=== PATIENT | male | born 1970 | race Caucasian/White ===

== ENCOUNTER 2018-06-13 10:41 | Emergency (ER) | payer OTHER ==
[2018-06-13 10:46] VITALS: BP 129/66; PULSE 77; TEMP 98.5; BMI 25.8
--- NOTE | 2018-06-13 10:52 | PDOC ---
History of Present Illness - General Chief Complaint: Rash Stated Complaint: RASH Time Seen by Provider: 06/13/18 10:50 History Source: Patient Exam Limitations: No Limitations - History of Present Illness Initial Comments: 06/13/18 10:53 47 yr male with itchy rash to bilateral arms for 2 days was recently outside doing yard work in [place]. Timing/Duration: reports: getting worse, yesterday Severity: Yes: moderate Location: reports: extremities Respiratory Risk Factors: reports: exposure to allergen Past History - Past Medical History Allergies/Adverse Reactions: Allergies Allergy/AdvReac Type Severity Reaction Status Date / Time No Known Allergies Allergy Verified 06/13/18 10:43 Home Medications: Ambulatory Orders Hydrocortisone Valerate [Westcort 0.2% Cream -] 1 applic TP TID #1 tube COPD: No Thyroid Disease: No Other medical history: DENIES. - Suicide/Smoking/Psychosocial Hx Smoking Status: No Smoking History: Never smoked Have you smoked in the past 12 months: No Number of Cigarettes Smoked Daily: 0 Hx Alcohol Use: No Drug/Substance Use Hx: No Substance Use Type: None Hx Substance Use Treatment: No *Physical Exam - Vital Signs Last Vital Signs Temp Pulse Resp BP Pulse Ox 98.5 F 77 19 129/66 98 06/13/18 10:43 06/13/18 10:43 06/13/18 10:43 06/13/18 10:43 06/13/18 10:43 - Physical Exam General Appearance: Yes: Nourished, Appropriately Dressed HEENT: positive: EOMI, ALAN Extremity: positive: Normal Capillary Refill, Normal Inspection, Normal Range of Motion Integumentary: positive: Rash (right and left inner upper arms with linear red pustule rash approx 2 inches in length x2cm wide) Medical Decision Making - Medical Decision Making 06/13/18 10:53 cc: poison katherine rash to arms no fever no chills rash consistent with poison Katherine will prescribe hydrocortiosne cream pt understands the dc inst *DC/Admit/Observation/Transfer Diagnosis at time of Disposition: Poison katherine dermatitis - Discharge Dispostion Disposition: HOME Condition at time of disposition: Good - Prescriptions Prescriptions: Hydrocortisone Valerate [Westcort 0.2% Cream -] 1 applic TP TID #1 tube - Referrals - Patient Instructions Printed Discharge Instructions: DI for Poison Katherine Allergy Additional Instructions: apply the cortisone cream three times a day for at least 7-10 days until healed cool water to bathe cover your arms with long sleeves take benadyrl, claritin or zyrtec return if worse - Post Discharge Activity
== END 2018-06-13 11:01 | disposition home or self-care (01) ==
LOC: JERFT 10:41
DX: L23.7 Allergic contact dermatitis due to plants, except food (principal)
CPT/HCPCS: 99281-25

== ENCOUNTER 2019-03-07 20:43 | Emergency (ER) | payer OTHER ==
[2019-03-07 20:55] VITALS: BP 149/86; PULSE 91; TEMP 98.1; BMI 27.3
--- NOTE | 2019-03-07 22:41 | PDOC ---
History of Present Illness - General Chief Complaint: Ear Problem Stated Complaint: EAR INFECTION Time Seen by Provider: 03/07/19 21:17 History Source: Patient Exam Limitations: No Limitations - History of Present Illness Initial Comments: 03/07/19 22:43 HISTORY OF PRESENT ILLNESS: This is a 48-year-old male denies medical history presents emergency department for evaluation of diminished hearing in his right ear over the past 3 days. He denies any pain, discharge or drainage from his ear. He reports the decreased hearing as a "muffled vibration." He denies any dizziness, blurry vision No recent travel or sick contacts. PAST MEDICAL HISTORY: Denies past medical history SURGICAL HISTORY: Denies ALLERGIES: No known drug allergies REVIEW OF SYSTEMS General/Constitutional: Denies fever or chills. Denies weakness, weight change. HEENT: see HPI Cardiovascular: Denies chest pain or shortness of breath. Respiratory: Denies cough, wheezing, or hemoptysis. Gastrointestinal: Denies nausea, vomiting, diarrhea or constipation. Denies rectal bleeding. Genitourinary: Denies dysuria, frequency, or change in urination. Musculoskeletal: Denies joint or muscle swelling or pain. Denies neck or back pain. Skin and breasts: Denies rash or easy bruising. Neurologic: Denies headache, vertigo, loss of consciousness, or loss of sensation. Psychiatric: Denies depression or anxiety. Endocrine: Denies increased thirst. Denies abnormal weight change. Hematologic/Lymphatic: Denies anemia, easy bleeding, or history of blood clots. Allergic/Immunologic: Denies hives or skin allergy. Denies latex allergy. PHYSICAL EXAM General Appearance: Well-appearing, appropriately dressed. No apparent distress , no intoxication. HEENT: EOMI, PERRLA, normal ENT inspection, normal voice, pharynx normal. No conjunctival pallor. No photophobia, scleral icterus. Impacted cerumen presents on the right TM from the 2:00 through 5:00 positions. Able to visualize the posterior aspect of the TM which appears within normal limits. Neurologic: sprinkler installer II-XII intact. Fully oriented, alert. Appropriate mood/affect. Motor strength 5/5. No appreciable EOM palsy, facial droop or sensory deficit. Past History - Past Medical History Allergies/Adverse Reactions: Allergies Allergy/AdvReac Type Severity Reaction Status Date / Time No Known Allergies Allergy Verified 03/07/19 20:51 Home Medications: Ambulatory Orders Hydrocortisone Valerate [Westcort 0.2% Cream -] 1 applic TP TID #1 tube COPD: No Thyroid Disease: No - Suicide/Smoking/Psychosocial Hx Smoking Status: No Smoking History: Never smoked Have you smoked in the past 12 months: No Number of Cigarettes Smoked Daily: 0 Information on smoking cessation initiated: No Hx Alcohol Use: No Drug/Substance Use Hx: No Substance Use Type: None Hx Substance Use Treatment: No *Physical Exam - Vital Signs Last Vital Signs Temp Pulse Resp BP Pulse Ox 98.1 F 91 H 16 149/86 100 03/07/19 20:49 03/07/19 20:49 03/07/19 20:49 03/07/19 20:49 03/07/19 20:49 Medical Decision Making - Medical Decision Making 03/07/19 22:41 A/P: 48-year-old male with impacted cerumen on his right TM. No tragal tenderness No mastoid tenderness Discharge home with instructions to instill hydrogen peroxide to remove remaining cerumen. *DC/Admit/Observation/Transfer Diagnosis at time of Disposition: Impacted cerumen of right ear - Discharge Dispostion Disposition: HOME Condition at time of disposition: Stable Decision to Admit order: No - Referrals Referrals: Lakeshia Craven MD [Primary Care Provider] - - Patient Instructions Additional Instructions: Instill hydrogen peroxide into right ear 3 times a week. Follow with a flush of water which can be done in the shower. Do not insert anything smaller than your elbow into your ear. Return to emergency department for any concerns. Thank you very much for choosing us to provide your emergent health care needs. - Post Discharge Activity
== END 2019-03-07 22:14 | disposition home or self-care (01) ==
LOC: JER 20:43 → JERFT 20:43
DX: H61.21 Impacted cerumen, right ear (principal)
CPT/HCPCS: 99281-25

== ENCOUNTER 2019-11-03 15:11 | Emergency (ER) | payer OTHER ==
[2019-11-03 15:18] VITALS: BP 146/92; PULSE 97; TEMP 98.2; BMI 26.6
--- NOTE | 2019-11-03 15:38 | PDOC ---
History of Present Illness - General Chief Complaint: Cold Symptoms Stated Complaint: COLD SYMPTOMS Time Seen by Provider: 11/03/19 15:18 - History of Present Illness Initial Comments: 11/03/19 15:38 49-year-old male without comorbidities presents for flulike symptoms x4 days Past History - Past Medical History Allergies/Adverse Reactions: Allergies Allergy/AdvReac Type Severity Reaction Status Date / Time No Known Allergies Allergy Verified 11/03/19 15:16 COPD: No Thyroid Disease: No - Psycho Social/Smoking Cessation Hx Smoking Status: No Smoking History: Never smoked Have you smoked in the past 12 months: No Number of Cigarettes Smoked Daily: 0 Hx Alcohol Use: No Drug/Substance Use Hx: No Substance Use Type: None Hx Substance Use Treatment: No Review of Systems - Review of Systems Constitutional: Yes: Chills, Fever, Malaise, Night Sweats HEENTM: Yes: Nose Congestion Respiratory: Yes: Cough *Physical Exam - Vital Signs Last Vital Signs Temp Pulse Resp BP Pulse Ox 98.2 F 97 H 18 146/92 98 11/03/19 15:17 11/03/19 15:17 11/03/19 15:17 11/03/19 15:17 11/03/19 15:17 - Physical Exam 11/03/19 15:38 GENERAL: The patient is awake, alert, and fully oriented, in no acute distress. HEAD: Normal with no signs of trauma. EYES: sclera anicteric, conjunctiva clear. ENT: Ears normal oropharynx clear uvula midline NECK: Normal range of motion LUNGS: Breath sounds equal, clear to auscultation bilaterally. No wheezes, and no crackles. HEART: S1 and S2 without murmur, rub or gallop. ABDOMEN: Soft, nontender, normoactive bowel sounds. No guarding, no rebound. No masses. EXTREMITIES: Normal range of motion, no edema. No clubbing or cyanosis. No cords, erythema, or tenderness. NEUROLOGICAL: Cranial nerves II through XII grossly intact. Normal speech, normal gait. PSYCH: Normal mood, normal affect. SKIN: Warm, Dry, normal turgor, no rashes or lesions noted. Medical Decision Making - Medical Decision Making 11/03/19 16:20 Viral upper respiratory infection follow-up with PCP supportive care Discharge - Discharge Information Problems reviewed: Yes Clinical Impression/Diagnosis: Viral URI with cough Condition: Stable Disposition: HOME - Admission No - Follow up/Referral Referrals: Lakeshia Craven MD [Primary Care Provider] - - Patient Discharge Instructions Patient Printed Discharge Instructions: DI for Viral Upper Respiratory Infection -- Adult Additional Instructions: Return to the emergency room for worsening symptoms. Tylenol Motrin for fever. Follow-up with your primary care physician in 2 to 3 days without fail - Post Discharge Activity
== END 2019-11-03 16:25 | disposition home or self-care (01) ==
LOC: JERFT 15:11
DX: J06.9 Acute upper respiratory infection, unspecified (principal); R05 Cough
CPT/HCPCS: 87804; 99281-25

== ENCOUNTER 2020-07-20 20:08 | Emergency (ER) | payer OTHER ==
[2020-07-20 20:15] VITALS: BP 146/97; PULSE 98; TEMP 98.6; BMI 26.2
[2020-07-20] MEDS ORDERED: diphenhydrAMINE HCL 25 MG CAPSULE (FP) PO ONE ×2 (20:29→20:33)
--- NOTE | 2020-07-20 20:31 | PDOC ---
History of Present Illness - General Chief Complaint: Allergic Reaction Stated Complaint: ALLERGIC REACTION Time Seen by Provider: 07/20/20 20:19 - History of Present Illness Initial Comments: 07/20/20 20:29 49-year-old male without comorbidities presents for evaluation of rash x2 days after doing work in his garden. Past History - Medical History Allergies/Adverse Reactions: Allergies Allergy/AdvReac Type Severity Reaction Status Date / Time No Known Allergies Allergy Verified 11/03/19 15:16 Home Medications: Ambulatory Orders Clobetasol Propionate [Temovate] 30 gm TP BID #1 oint...g. 07/20/20 Methylprednisolone [Medrol Dose James] 4 mg PO ASDIR #21 tablet 07/20/20 COPD: No Thyroid Disease: No - Psycho-Social/Smoking History Smoking Status: No Smoking History: Never smoked Have you smoked in the past 12 months: No Number of Cigarettes Smoked Daily: 0 - Substance Abuse Hx (Audit-C & DAST Scrn) How often the patient has a drink containing alcohol: Never Score: In Men: 4 or > Positive; In Women: 3 or > Positive: 0 Screen Result (Pos requires Nsg. Audit-10AR): Negative In the last yr the pt used illegal drug/Rx for NonMed reason: No Score: Yes response is considered Positive: 0 Screen Result (Positive result requires Nsg. DAST-10): Negative Review of Systems - Review of Systems Constitutional: No: Chills, Fever, Night Sweats Respiratory: No: Shortness of Breath, Wheezing Integumentary: Yes: Pruritus, Rash *Physical Exam - Vital Signs Last Vital Signs Temp Pulse Resp BP Pulse Ox 98.6 F 98 H 19 146/97 98 07/20/20 20:10 07/20/20 20:10 07/20/20 20:10 07/20/20 20:10 07/20/20 20:10 - Physical Exam 07/20/20 20:30 There is a mildly erythemic raised wheals rash on the left flank left and right forearm with blister formation no indication of secondary infection normal surrounding skin color and temperature. Medical Decision Making - Medical Decision Making 07/20/20 20:30 Treatment options discussed, topical steroid and Medrol Dosepak follow-up with dermatology I have reviewed the pathophysiology with the patient. They are in agreement with the treatment plan all questions were answered to their satisfaction. Understanding for follow-up without fail was also conveyed to the patient. Again they are in agreement. Discharge - Discharge Information Problems reviewed: Yes Clinical Impression/Diagnosis: Poison brynn dermatitis Condition: Stable Disposition: HOME - Admission No - Additional Discharge Information Prescriptions: Methylprednisolone [Medrol Dose James] 4 mg PO ASDIR #21 tablet Clobetasol Propionate [Temovate] 30 gm TP BID #1 oint...g. - Follow up/Referral Referrals: Lakeshia Craven MD [Primary Care Provider] - Arina Linton MD [Staff Physician] - - Patient Discharge Instructions Additional Instructions: Please take the Medrol Dosepak and use a steroid cream as directed. Intermittent Benadryl as directed to help with the itching. Return to the emergency room for worsening symptoms and without fail follow-up with dermatology in 1 to 2 days for further evaluation and treatment options. - Post Discharge Activity
== END 2020-07-20 20:35 | disposition home or self-care (01) ==
LOC: JERFT 20:08
DX: L23.7 Allergic contact dermatitis due to plants, except food (principal)
CPT/HCPCS: 99283-25

== ENCOUNTER 2021-09-03 13:34 | Emergency (ER) | payer OTHER ==
[2021-09-03 13:43] VITALS: TEMP 98; BMI 26.6
[2021-09-03] MEDS ORDERED: METHOCARBAMOL 500 MG TABLET PO ONE (14:58)
[2021-09-03] MEDS ORDERED: KETOROLAC TROMETHAMINE 15 MG/ML VIAL IVPUSH ONE (14:58)
[2021-09-03] MEDS ORDERED: METHOCARBAMOL 500 MG TABLET ONE (15:11)
[2021-09-03] MEDS ORDERED: KETOROLAC TROMETHAMINE 15 MG/ML VIAL ONE (15:11)
[2021-09-03 15:29] LABS: BASO % 0.3 % (0-2.0); CALCIUM 9.7 mg/dL (8.5-10.1); EOS % 1.6 % (0-4.5); HEMATOCRIT 44.3 % (35.4-49); HEMOGLOBIN 15.4 GM/dL (11.7-16.9); LYMPH % 30.6 % (8-40); MCH 31.2 pg (25.7-33.7); MCHC 34.7 g/dl (32.0-35.9); MEAN CELL VOLUME 89.9 fl (80-96); MEAN PLT VOLUME 9.1 fl (7.5-11.1); MONO % 7.3 % (3.8-10.2); NEUT % 60.2 % (42.8-82.8); PLATELET COUNT 192 10^3/uL (134-434); RBC 4.92 M/mm3 (4.00-5.60); RDW 12.4 % (11.9-15.9); WHITE BLOOD COUNT 7.7 K/mm3 (4.0-10.0)
[2021-09-03 15:30] LABS: ALBUMIN 4.1 g/dl (3.4-5.0); URINE APPEARANCE CLEAR; URINE BILIRUBIN NEGATIVE (NEGATIVE); URINE COLOR YELLOW; URINE GLUCOSE (UA) NEGATIVE (NEGATIVE); URINE KETONE NEGATIVE (NEGATIVE); URINE LEUK ESTERASE NEGATIVE (NEGATIVE); URINE NITRITE NEGATIVE (NEGATIVE); URINE PROTEIN NEGATIVE (NEGATIVE); URINE UROBILINOGEN 0.2 mg/dL (0.2-1.0)
[2021-09-03 15:33] LABS: CREATININE 1.1 mg/dL (0.55-1.3)
[2021-09-03 15:35] LABS: BILIRUBIN,TOTAL 0.3 mg/dL (0.2-1); TOT PROT 8.2 g/dl (6.4-8.2)
[2021-09-03] MEDS ORDERED: LIDOCAINE 5% TOPICAL PATCH TP ONE (16:34)
[2021-09-03] MEDS ORDERED: LIDOCAINE 5% TOPICAL PATCH ONE (16:57)
[2021-09-03 18:24] VITALS: BP 165/85; PULSE 66
== END 2021-09-03 18:24 | disposition home or self-care (01) ==
LOC: JER 13:34
PROC: 3E033GC Introduction of Other Therapeutic Substance into Peripheral Vein, Percutaneous Approach (ICD-10-PCS; principal; 2021-09-03)
DX: M54.50 Low back pain, unspecified (principal)
CPT/HCPCS: 36415; 74176-TC; 80053; 81003; 83690; 85025; 86850; 86900; 86901; 87086; 99285-25

== ENCOUNTER 2023-04-12 15:31 | Emergency (ER) | payer OTHER ==
[2023-04-12 15:48] VITALS: BP 122/79; PULSE 95; RESP 16; TEMP 98.3; BMI 28.0
== END 2023-04-12 16:48 | disposition home or self-care (01) ==
LOC: JERFT 15:31
DX: H92.01 Otalgia, right ear (principal); H91.91 Unspecified hearing loss, right ear; H93.91 Unspecified disorder of right ear
CPT/HCPCS: 99282-25

== ENCOUNTER 2024-05-24 13:27 | Emergency (ER) | payer OTHER ==
[2024-05-24 13:30] VITALS: RESP 18; TEMP 98.5; BMI 28.0
[2024-05-24] MEDS ORDERED: FAMOTIDINE 20 MG/50 ML IVPB 20 MG/50 ML MG IVPB ONE (14:27)
[2024-05-24] MEDS ORDERED: ASPIRIN 81 MG CHEWABLE TABLETS ONE (14:27)
[2024-05-24] MEDS ORDERED: ACETAMINOPHEN INJECTION 100 ML IVPB ONE (14:27)
[2024-05-24] MEDS: ACETAMINOPHEN 1000 MG/100 ML BAG IVPB ONE (14:33)
[2024-05-24] MEDS: ASPIRIN 81 MG CHEWABLE TABLETS PO ONE (14:33)
[2024-05-24] MEDS: FAMOTIDINE 20 MG/50 ML IVPB 20 MG/50 ML MG IVPB ONE (14:33)
[2024-05-24 14:36] LABS: BASO % 0.3 % (0-2.0); EOS % 1.3 % (0-4.5); HEMATOCRIT 41.8 % (35.4-49); HEMOGLOBIN 14.1 GM/dL (11.7-16.9); LYMPH % 31.1 % (8-40); MCH 30.4 pg (25.7-33.7); MCHC 33.8 g/dl (32.0-35.9); MEAN CELL VOLUME 89.8 fl (80-96); MEAN PLT VOLUME 8.9 fl (7.5-11.1); MONO % 6.9 % (3.8-10.2); NEUT % 60.4 % (42.8-82.8); PLATELET COUNT 217 10^3/uL (134-434); RBC 4.65 M/mm3 (4.00-5.60); RDW 12.5 % (11.9-15.9); WHITE BLOOD COUNT 7.1 K/mm3 (4.0-10.0)
[2024-05-24 14:44] LABS: INR 0.98 (0.83-1.09); PROTHROMBIN TIME (PATIENT) 11.1 SEC (9.7-13.0)
[2024-05-24 14:45] LABS: POTASSIUM 3.9 mmol/L (3.5-5.1)
[2024-05-24 14:47] LABS: ACTIVATED PTT 32.5 SECONDS (25.2-36.5); ALBUMIN 3.9 g/dl (3.4-5.0); CALCIUM 9.9 mg/dL (8.5-10.1)
[2024-05-24 14:48] LABS: BLOOD UREA NITROGEN 16.6 mg/dL (7-18)
[2024-05-24 14:51] LABS: CREATININE 1.1 mg/dL (0.55-1.3)
[2024-05-24 14:52] LABS: BILIRUBIN,TOTAL 0.5 mg/dL (0.2-1); TOT PROT 7.7 g/dl (6.4-8.2)
[2024-05-24 14:55] LABS: N-TERMINAL BNP 29.2 pg/ml (5-125)
[2024-05-24 18:35] VITALS: BP 126/87; PULSE 72
== END 2024-05-24 18:00 | disposition home or self-care (01) ==
LOC: JER 13:27
PROC: 3E033GC Introduction of Other Therapeutic Substance into Peripheral Vein, Percutaneous Approach (ICD-10-PCS; principal; 2024-05-24)
PROC: 3E033NZ Introduction of Analgesics, Hypnotics, Sedatives into Peripheral Vein, Percutaneous Approach (ICD-10-PCS; 2024-05-24)
DX: I20.9 Angina pectoris, unspecified (principal); R07.89 Other chest pain; I10 Essential (primary) hypertension; R05.9 Cough, unspecified; Z20.822 Contact with and (suspected) exposure to COVID-19
CPT/HCPCS: 0241U-QW; 36415; 71046-TC-FY; 80053; 83880; 84484; 85025; 85610; 85730; 86850; 86900; 86901; 93005; 93010; 99285-25; J0131

== ENCOUNTER 2024-07-03 08:33 | Emergency (ER) | payer OTHER ==
[2024-07-03 08:39] VITALS: BP 135/81; PULSE 80; RESP 18; TEMP 97.8; BMI 28.1
[2024-07-03] MEDS ORDERED: ACETAMINOPHEN 325 MG TABLET (FP) ONE (09:22)
[2024-07-03 09:24] LABS: BASO % 0.3 % (0-2.0); EOS % 1.4 % (0-4.5); HEMATOCRIT 39.8 % (35.4-49); HEMOGLOBIN 13.8 GM/dL (11.7-16.9); LYMPH % 26.3 % (8-40); MCH 31.3 pg (25.7-33.7); MCHC 34.7 g/dl (32.0-35.9); MEAN CELL VOLUME 90.1 fl (80-96); MEAN PLT VOLUME 8.9 fl (7.5-11.1); MONO % 6.5 % (3.8-10.2); NEUT % 65.5 % (42.8-82.8); PLATELET COUNT 198 10^3/uL (134-434); RBC 4.41 M/mm3 (4.00-5.60); RDW 12.4 % (11.9-15.9); WHITE BLOOD COUNT 7.4 K/mm3 (4.0-10.0)
[2024-07-03] MEDS: ACETAMINOPHEN 325 MG TABLET (FP) PO ONE (09:25)
[2024-07-03 09:45] LABS: POTASSIUM 4.1 mmol/L (3.5-5.1)
[2024-07-03 09:48] LABS: CALCIUM 10.1 mg/dL (8.5-10.1)
[2024-07-03 09:49] LABS: ALBUMIN 4.2 g/dl (3.4-5.0); BLOOD UREA NITROGEN 14.1 mg/dL (7-18); MAGNESIUM 2.4 mg/dL (1.8-2.4)
[2024-07-03 09:52] LABS: CREATININE 1.2 mg/dL (0.55-1.3)
[2024-07-03 09:53] LABS: BILIRUBIN,TOTAL 0.5 mg/dL (0.2-1); TOT PROT 7.8 g/dl (6.4-8.2)
== END 2024-07-03 12:39 | disposition home or self-care (01) ==
LOC: JER 08:33
DX: M79.602 Pain in left arm (principal); M79.605 Pain in left leg
CPT/HCPCS: 36415; 71046-TC-FY; 80053; 83735; 84484; 85025; 93005; 93010; 99285-25